=== PATIENT | male | born 1965 | race African-American/Black ===

== ENCOUNTER 2019-09-23 10:29 | Emergency (ER) | payer OTHER ==
[~2019-09-23] VITALS: Ht 162.6 cm; Wt 74.8 kg
[~2019-09-23 10:29] MED LIST: ACETAMINOPHEN-1 EAC1 PO; ALLEGRA-D 12 H1 EAC2 PO; LEVOTHYROXINE0.05 MG PO; LOVASTAT20 PO; PRILOSEC 20 MG20 MG PO; THERAFLU FLU PO; VENTOLIN HFA INH8 GM IH; ZPAK PO
[2019-09-23] MEDS ORDERED: PROTONIX 20 MG20 MG PO (10:34)
[2019-09-23] MEDS ORDERED: MULTIVITAMINS1 EAC7 PO (10:34)
[2019-09-23] MEDS ORDERED: CLARITIN10 M3 PO (10:34)
[2019-09-23 11:04] LABS: ABSOLUTE NEUTROPHILS 5.3 thou/uL (1.4-8.2); BASOPHILS 0.7 % (0.0-2.0); EOSINOPHILS 0.2 % (0.0-3.0); HEMATOCRIT 46.6 % (42.0-52.0); HEMOGLOBIN 15.9 gm/dL (14.0-18.0); LYMPHOCYTES 15.8 % (24.0-44.0); MCH 30.9 pg (26.0-34.0); MCHC 34.1 g/dL (28.0-37.0); MCV 90.6 fL (80.0-100.0); MONOCYTES 11.5 % (1.0-8.0); PLATELET COUNT 279 thou/uL (150-400); POLYS 71.8 % (36.0-66.0); RBC 5.14 mil/uL (4.50-6.00); RDW 12.7 % (10.5-14.5); WBC 7.4 thou/uL (4.0-11.0)
[2019-09-23 11:14] LABS: ANION GAP 8 mmol/L (7-16); BUN 14 mg/dL (7-18); CALCIUM 9.9 mg/dL (8.5-10.1); CHLORIDE 97 mmol/L (98-107); CO2 29 mmol/L (21-32); CREATININE 1.3 mg/dL (0.7-1.3); GLUCOSE 105 mg/dL (74-106); POTASSIUM 3.2 mmol/L (3.5-5.1); SODIUM 134 mmol/L (136-145)
[2019-09-23 11:25] LABS: ALBUMIN 3.5 g/dL (3.4-5.0); LIPASE 175 U/L (73-393); SGOT 28 U/L (15-37); SGPT 47 U/L (30-65); TOTAL BILIRUBIN 0.5 mg/dL (<0.1-1.0); TOTAL PROTEIN 8.4 g/dL (6.4-8.2); TROPONIN-I <0.06 ng/mL (<0.06)
[2019-09-23 12:30] LABS: URINE BILIRUBIN NEGATIVE (Negative); URINE BLOOD 2+ (Negative); URINE CLARITY CLEAR; URINE COLOR YELLOW; URINE GLUCOSE-RANDOM* NEGATIVE (Negative); URINE KETONES NEGATIVE (Negative); URINE LEUKOCYTES-REFLEX NEGATIVE (Negative); URINE NITRITE-REFLEX NEGATIVE (Negative); URINE PROTEIN (DIPSTICK) NEGATIVE (Negative); URINE UROBILINOGEN 0.2 E.U./dl (0.2-1.0)
[2019-09-23 12:42] LABS: BACTERIA-REFLEX None Seen /HPF (None Seen); CASTS None Seen /LPF (None Seen); CRYSTALS None Seen /LPF (None Seen); SQUAMOUS 0-3 Few /LPF (0-3); URINE RBC 0-2 Rare /HPF (0-2); URINE WBC-REFLEX 0-5 Rare /HPF (0-5)
[2019-09-23] MEDS ORDERED: ONDANSETRON HCL4 M2 PO (13:23)
[2019-09-23] MEDS ORDERED: POTASSIUM20 PO (13:26)
[2019-09-23 13:47] VITALS: BP 133/88
--- NOTE | 2019-09-24 09:39 | EKG ---
[address] [place] [address] ELECTROCARDIOGRAM REPORT Name: ALOK YOO Room #: DEP [facility]#: [id number] Admission: 09/23/19 Attend Phys: Discharge: 09/23/19 Date of : 61 Report #: [id number] THIS REPORT FOR: //name// [facility] ED Test Date: 2019-09-23 Test Time: 10:32:52 Pat Name: ALOK YOO Department: Room: Gender: Sterile Processing Manager: TRESSA : 1965 Requested By: David Bravo Order Number: [id number] MD: Vinod Valiente Measurements Intervals [place] Rate: 79 P: 65 AR: 133 QRS: 69 QRSD: 85 T: 43 QT: 354 QTc: 406 Interpretive Statements Sinus rhythm No significant abnormality Compared to ECG 02/06/2016 08:01:59 Sinus bradycardia no longer present Electronically Signed On 09-24-2019 9:39:11 STUDIO TECHNICIAN by Vinod Valiente [email or web address] <ELECTRONICALLY SIGNED> By: Vinod Valiente MD, [facility] 09/24/19 0939 1032 1032 Vinod Valiente MD, FACC /EPI
== END 2019-09-23 13:47 | disposition home or self-care (01) ==
LOC: ER 10:29
PROVIDERS: Physician Assistant
DX: R19.7 Diarrhea, unspecified (principal); R11.2 Nausea with vomiting, unspecified; E78.00 Pure hypercholesterolemia, unspecified; E03.9 Hypothyroidism, unspecified; Z91.018 Allergy to other foods

== ENCOUNTER → 2020-12-28 | Emergency (ER) | payer OTHER ==
[~2020-12-28] VITALS: Ht 162.6 cm; Wt 77.6 kg
[~2020-12-28] MED LIST changes: +CLARITIN10 M3 PO; +MULTIVITAMINS1 EAC7 PO; +OMEPRAZOLE40 MG PO; +ONDANSETRON HCL4 M2 PO; +POTASSIUM20 PO; +PROTONIX 20 MG20 MG PO
[2020-12-28 08:06] LABS: HEMATOCRIT 40.7 % (42.0-52.0); HEMOGLOBIN 13.6 gm/dL (14.0-18.0); MCHC 33.4 g/dL (28.0-37.0); MCV 92.8 fL (80.0-100.0); RBC 4.38 mil/uL (4.50-6.00); RDW 12.7 % (10.5-14.5); WBC 6.4 thou/uL (4.0-11.0)
[2020-12-28 08:26] LABS: ANION GAP 7 mmol/L (7-16); BUN 19 mg/dL (7-18); CALCIUM 9.3 mg/dL (8.5-10.1); CHLORIDE 102 mmol/L (98-107); CO2 29 mmol/L (21-32); CREATININE 1.2 mg/dL (0.7-1.3); GLUCOSE 73 mg/dL (74-106); SODIUM 138 mmol/L (136-145)
[2020-12-28 08:37] LABS: ALBUMIN 3.3 g/dL (3.4-5.0); SGOT 22 U/L (15-37); SGPT 36 U/L (30-65); TOTAL BILIRUBIN 0.4 mg/dL (0.2-1.0); TOTAL PROTEIN 7.6 g/dL (6.4-8.2); TROPONIN-I <0.06 ng/mL (<0.06)
[2020-12-28 09:00] VITALS: BP 159/75
--- NOTE | 2020-12-28 16:24 | EKG ---
[place] [address] [facility] [place] [address] ELECTROCARDIOGRAM REPORT Name: NAILAALOK E [facility] [id number] Admission: 12/28/20 Attend Phys: Discharge: Date of : 61 Report #: [id number] [facility] Test Date: 2020-12-28 Test Time: 07:57:41 Pat Name: ALOK YOO Department: Room: Gender: Marriage Therapist: BURTON : 1965 Requested By: Narayan Aquino Order Number: [id number] MD: Vinod Valiente Measurements Intervals [place] Rate: 55 P: 51 TX: 153 QRS: 46 QRSD: 81 T: 34 QT: 408 QTc: 391 Interpretive Statements Sinus bradycardia Otherwise no significant abnormality Compared to ECG 09/23/2019 10:32:52 No significant changes Electronically Signed On 12-28-2020 16:24:05 CDT by Vinod Valiente [email or web address] <ELECTRONICALLY SIGNED> By: Vinod Valiente MD, [facility] 12/28/20 1624 [id number] [id number] Vinod Valiente MD, FACC /EPI
== END ==
LOC: ER 07:34
PROVIDERS: Emergency Medicine
DX: R07.89 Other chest pain (principal); E03.9 Hypothyroidism, unspecified; E78.5 Hyperlipidemia, unspecified; Z79.899 Other long term (current) drug therapy; Z91.018 Allergy to other foods